=== PATIENT | female | born 1950 | race Hispanic/Latino ===

== ENCOUNTER 2018-03-10 00:19 | Emergency (ER) | payer BC, OTHER ==
[2018-03-10] MEDS ORDERED: ONDANSETRON ODT 4 MG TAB ONE (00:43)
[2018-03-10] MEDS ORDERED: HYDROCODONE/ACETAMINOPHEN 5/325 MG TAB ONE (00:44)
== END 2018-03-10 00:50 | disposition home or self-care (01) ==
LOC: EDH 00:19
DX: L03.032 Cellulitis of left toe (principal); E11.9 Type 2 diabetes mellitus without complications; E78.5 Hyperlipidemia, unspecified; I10 Essential (primary) hypertension; Z79.2 Long term (current) use of antibiotics
CPT/HCPCS: 82948